=== PATIENT | female | born 1995 | race Caucasian/White ===

== ENCOUNTER 2021-02-21 07:56 | Emergency (ER) | payer BC ==
[2021-02-21] MEDS ORDERED: Tetracaine HCl/PF 0.5% 4 ML Bottle EYEBOTH ONE (08:18)
[2021-02-21] MEDS ORDERED: Ketorolac 15 MG/ML SDV IM ONE (08:42)
--- NOTE | 2021-02-21 08:45 | EDM.PDOC ---
ED HPI GENERAL MEDICAL PROBLEM - General Chief Complaint: Eye Problems Stated Complaint: FLASH BURN TO BOTH EYES Time Seen by Provider: 02/21/21 08:07 - History of Present Illness INITIAL COMMENTS - FREE TEXT/NARRATIVE: CHIEF COMPLAINT(S): Pain in right eye HISTORY OF PRESENT ILLNESS: This is a 25-year-old woman without any significant past medical history who comes to the emergency department with a chief complaint of pain in her right eye. 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 She states that she was not wearing safety glasses but was wearing a facial. She states that she is currently experiencing pain in bilateral eyes however worse in the right. She describes the pain as burning and feels like there is something scratching her right eye. She rates her pain as 4-5 out of 10 in the left eye and 6-8 out of 10 in the right eye. She states that when she felt the sensation she did rinse her eye with shower water last night and then she did it again this morning. She denies any blurry vision, double vision or loss of vision. She states that she comes in to evaluate if there is any evidence of any foreign body. She does not know what may have gotten in there other than she was welding metal. She denies any runny nose, congestion or any other symptoms. REVIEW OF SYSTEMS: Eyes: Positive for bilateral eye pain Ears, Nose, Mouth, & Throat: Denies earache, sore throat, runny nose Skin:Denies a rash Neurological: Denies blurred vision, double vision, loss of vision PAST MEDICAL HISTORY: As per history of present illness and as reviewed below otherwise noncontributory. SURGICAL HISTORY: As per history of present illness and as reviewed below otherwise noncontributory. SOCIAL HISTORY: As per history of present illness and as reviewed below otherwise noncontributory. FAMILY HISTORY: As per history of present illness and as reviewed below otherwise noncontributory. EXAMINATION OF ORGAN SYSTEMS/BODY AREAS: Constitutional: Blood pressure is 119/82, heart rate 89, respiratory rate 15 with an oxygen saturation 98% on room air. Temperature 36.6 General: Well-appearing woman who is in no acute distress Psychiatric: Appropriate mood and affect. Eyes: Mild conjunctival erythema. No scleral icterus. Pupils were 3 mm and reactive bilaterally. Extraocular movements were intact. No hyphema or hypopyon. With eyelid eversion on bilateral sides there is no evidence of any foreign body and no evidence of rust ring. With fluorescein examination there is no evidence of any corneal abrasion or evidence of globe rupture or Jens sign. There is no pain with extraocular movements. ENMT: Moist mucous membranes. No pharyngeal erythema Cardiovascular: Regular, rate, and rhythm. No gallops, murmurs, or rubs. Respiratory: Lungs clear to auscultation bilaterally. No wheezes, rales, or rhonchi. Neurological: Alert, GCS 15 MEDICAL DECISION MAKING AND COURSE IN THE ED WITH INTERPRETATION/REVIEW OF DIAGNOSTIC STUDIES: This is a 25-year-old woman and without any significant past medical history who comes to the emergency department with bilateral eye pain worse on the right than the left with a foreign body sensation who has no evidence of any foreign body, rust ring or evidence of globe rupture. There are no red flag symptoms. At this time I do believe the patient is likely experiencing UV keratitis given the welding. I did discuss symptomatic treatment at home and follow-up with ophthalmology. She was given strict return precautions. The patient was amenable to discharge and had no further questions DISPOSITION: The patient was discharged home in stable condition. The patient will follow up with pcp withinn 3-5 days or ophthalmology CONDITION: fair PROCEDURES: None FINAL IMPRESSION(S)/DIAGNOSES: 1 acute uv keratitis Simon Aranda M.D. Right Eye Pain Score (Numeric/FACES): 10 - Related Data Allergies Allergy/AdvReac Type Severity Reaction Status Date / Time amoxicillin [From Augmentin] Allergy Vomiting Verified 02/21/21 08:10 clavulanic acid Allergy Vomiting Verified 02/21/21 08:10 [From Augmentin] Home Meds: Home Meds ClonazePAM [KlonoPIN] 1 dose ASDIRECTED 02/21/21 [History] Escitalopram Oxalate [Lexapro] 1 dose ASDIRECTED 02/21/21 [History] medroxyPROGESTERone [Depo-Provera Contraceptive] 1 dose ASDIRECTED 02/21/21 [History] Past Medical History - Past Health History Medical/Surgical History: Denies Medical/Surgical History - Infectious Disease History Infectious Disease History: Reports: None Social & Family History - Family History Family Medical History: No Pertinent Family History ED ROS GENERAL - Review of Systems Review Of Systems: See Below ED EXAM GENERAL W FULL EYE - Physical Exam Exam: See Below Course - Vital Signs Last Recorded V/S: Last Vital Signs Temp 36.6 C 02/21/21 08:12 Pulse 87 02/21/21 09:05 Resp 15 02/21/21 08:12 BP 117/78 02/21/21 09:05 Pulse Ox 99 02/21/21 09:05 - Orders/Labs/Meds Meds: Medications Discontinued Medications Generic Name Dose Route Start Last Admin Trade Name Titi PRN Reason Stop Dose Admin Ketorolac Tromethamine 15 mg 02/21/21 08:42 02/21/21 08:48 Ketorolac 15 Mg/Ml Sdv IM 02/21/21 08:43 15 mg ONETIME ONE Administration Tetracaine HCl 1 ml 02/21/21 08:18 02/21/21 08:28 Tetracaine Hcl/Pf 0.5% 4 Ml Bottle EYEBOTH 02/21/21 08:19 1 ml ASDIRECTED ONE Administration Departure - Departure Time of Disposition: 08:43 Disposition: Home, Self-Care 01 Condition: Fair Clinical Impression: UV keratitis - Discharge Information *PRESCRIPTION DRUG MONITORING PROGRAM REVIEWED*: No *COPY OF PRESCRIPTION DRUG MONITORING REPORT IN PATIENT [place]: No Instructions: Ultraviolet Keratitis, [id number] Referrals: PCP,None [Primary Care Provider] - Forms: ED Department Discharge Additional Instructions: Your evaluated today on an emergent basis. At this time it does not appear that there is any further foreign bodies that are left in your right eye. At this time I did not see any evidence of any globe or eye rupture. As discussed I recommend you use ibuprofen 600 mg every 6 hours and use hydrating drops to your eye multiple times throughout the day. I recommend you follow-up with ophthalmology within 48 hours. If you have any worsening symptoms such as blurry vision, loss of vision, increased pain, redness I would like you to re turn to the emergency department. Ophthalmology Dr. Gastelum [phone] The patient is informed of any results of their evaluation and diagnostic workup and all questions are answered. They are given discharge instructions and return precautions. The patient is stable for discharge. The patient states they understand and agree with the plan and that they will return if their symptoms get worse or if they have any new concerns. The following information is given to patients seen in the emergency department who are being discharged to home. This information is to outline your options for follow-up care. We provide all patients seen in our emergency department with a follow-up referral. The need for follow-up, as well as the timing and circumstances, are variable depending upon the specifics of your emergency department visit. If you don't have a primary care physician on staff, we will provide you with a referral. We always advise you to contact your personal physician following an emergency department visit to inform them of the circumstance of the visit and for follow-up with them and/or the need for any referrals to a consulting specialist. The emergency department will also refer you to a specialist when appropriate. This referral assures that you have the opportunity for follow-up care with a specialist. All of these measure are taken in an effort to provide you with optimal care, which includes your follow-up. Under all circumstances we always encourage you to contact your private physician who remains a resource for coordinating your care. When calling for follow-up care, please make the office aware that this follow-up is from your recent emergency room visit. If for any reason you are refused follow-up, please contact the [facility] Department at and asked to speak to the emergency department charge nurse. Sepsis Event Note (ED) - Evaluation Sepsis Screening Result: No Definite Risk
== END 2021-02-21 09:06 | disposition home or self-care (01) ==
LOC: MW.ED 07:56
DX: H16.133 Photokeratitis, bilateral (principal); Z88.0 Allergy status to penicillin
CPT/HCPCS: 96372; 99283; J1885